=== PATIENT | male | born 1995 | race Caucasian/White ===

== ENCOUNTER 2023-05-08 04:21 | Outpatient (CLI) | payer OTHER | END 2023-05-08 04:22 | disposition critical access hospital (66) | LOC: EMS 04:21 | DX: R55 Syncope and collapse (principal); R00.1 Bradycardia, unspecified | CPT/HCPCS: A0425; A0427 ==

== ENCOUNTER 2023-05-08 04:35 | Emergency (ER) | payer OTHER ==
[2023-05-08] MEDS: SODIUM CHLORIDE 0.9% 1,000 ML IV STA (04:50)
[2023-05-08 05:34] LABS: BASOPHILS % (AUTO) 0.6 %; EOSINOPHILS # (AUTO) 0.1 10^3/uL (0.0-0.7); EOSINOPHILS % (AUTO) 0.8 %; HCT - HEMATOCRIT 44.5 % (42.0-52.0); MEAN CORPUSCULAR HEMOGLOBIN 29.1 pg (27.0-31.0); MEAN CORPUSCULAR HGB CONC 33.7 g/dL (32.0-36.0); MEAN CORPUSCULAR VOLUME 86.2 fL (80.0-94.0); MEAN PLATELET VOLUME 9.2 fL (7.4-11.4); MONOCYTES # (AUTO) 0.5 10^3/uL (0.0-1.0); MONOCYTES % (AUTO) 7.1 %; NEUTROPHILS # (AUTO) 3.5 10^3/uL (1.5-6.6); NEUTROPHILS % (AUTO) 49.2 %; PLT - PLATELET COUNT 219 10^3/uL (130-450); RED BLOOD COUNT 5.16 10^6/uL (4.70-6.10); RED CELL DISTRIBUTION WIDTH 11.4 % (12.0-15.0); WHITE BLOOD COUNT 7.2 x10^3/uL (4.8-10.8)
[2023-05-08 05:53] LABS: ALBUMIN 4.3 g/dL (3.2-5.5); BILIRUBIN,TOTAL 0.9 mg/dL (0.2-1.0); CALCIUM 9.3 mg/dL (8.5-10.3); CREATININE 0.9 mg/dL (0.6-1.3); POTASSIUM 3.6 mmol/L (3.5-4.5); TOTAL PROTEIN 6.5 g/dL (6.4-8.9)
--- NOTE | 2023-05-08 06:20 | ED Physician Documentation ---
History of Present Illness - Stated complaint Stated Complaint: SYNCOPE - Chief complaint Chief Complaint: Neuro - History obtained from History obtained from: Patient, EMS - Additonal information Additional information: The pt is brought to the ED by EMS for CC of syncopal episode. He had gotten up to go to the bathroom in the automotive tire tester, when he began to feel a little dizzy. The next thing he knew, he was waking up on the floor. His states he was out for about 30 seconds. She had heard him hit the door and fall, but he was against the door, so she couldn't open it to get to him. When the pt began to wake up, she was able to get in and help him get out, but she states the pt was "out of it" for about 8 minutes. BY the time the medics came, he was nearly back to his normal self, awake and talking. states that when she heard the pt fall, it was just silent after that, with no sound of the pt shaking. Pt does have a h/o fainting every time he gets his blood drawn. He states he has not fainted under other circumstances before. He states he did not have any CP, SOB, or palpitations before or since the episode. He is feeling fine now, other than being a little tired. PD PAST MEDICAL HISTORY - Past Medical History Past Medical History: No - Past Surgical History Past Surgical History: Yes General: Other HEENT: Other - Present Medications Home Medications: Ambulatory Orders Medication Instructions Recorded Confirmed No Known Home Medications 05/08/23 05/08/23 - Allergies Allergies/Adverse Reactions: Allergies Allergy/AdvReac Type Severity Reaction Status Date / Time cefprozil [From Cefzil] Allergy Rash Verified 05/08/23 05:11 - Social History Does the pt smoke?: No Smoking Status: Never smoker Does the pt drink ETOH?: Yes ETOH Use: Beer Does the pt have substance abuse?: No - Immunizations Immunizations are current?: Yes - POLST Patient has POLST: No PD ED PE NORMAL - Vitals Vital signs reviewed: Yes - General General: Alert and oriented X 3, No acute distress, Well developed/nourished - HEENT HEENT: Atraumatic, PERRL, EOMI, Moist mucous membranes - Neck Neck: Supple, no meningeal sign - Cardiac Cardiac: RRR, No murmur - Respiratory Respiratory: No respiratory distress, Clear bilaterally - Abdomen Abdomen: Soft, Non tender, Non distended - Derm Derm: Normal color, Warm and dry, No rash - Extremities Extremities: No deformity, No edema, No calf tenderness / cord - Neuro Neuro: Alert and oriented X 3, Other (grossly intact) - Psych Psych: Normal mood, Normal affect Results - Vitals Vitals: Oxygen O2 Source Room air - EKG (time done) 0448 EKG releavant findings:: EKG personally interpreted by author of this note. Relevant findings are: Rate: Rate (enter#) (52) Rhythm: NSR [place]: Normal Intervals: Normal VT QRS: Normal Ischemia: ST elevation c/w repol Compare to prior EKG: Old EKG unavailable Computer interpretation: Disagree with computer (The pt appears to have J-point elevation. No other findings to suggest pericarditis.) - Labs Labs: Laboratory Tests 05/08/23 05/08/23 04:53 04:53 WBC 7.2 RBC 5.16 Hgb 15.0 Hct 44.5 MCV 86.2 MCH 29.1 MCHC 33.7 RDW 11.4 L Plt Count 219 MPV 9.2 Neut # (Auto) 3.5 Lymph # (Auto) 3.0 Banner # (Auto) 0.5 Eos # (Auto) 0.1 Baso # (Auto) 0.0 Absolute Nucleated RBC 0.00 Nucleated RBC % 0.0 Sodium 136 Potassium 3.6 Chloride 102 Carbon Dioxide 25 Anion Gap 9.0 BUN 23 H Creatinine 0.9 Estimated GFR (MDRD) 101 Glucose 123 H Calcium 9.3 Total Bilirubin 0.9 AST 13 ALT 12 Alkaline Phosphatase 62 Total Protein 6.5 Albumin 4.3 Globulin 2.2 Albumin/Globulin Ratio 2.0 Lipase 29 PD Medical Decision Making - ED course Complexity details: reviewed results, re-evaluated patient, considered differential, d/w patient, d/w family ED course: The pt's vital signs were normal, and he was feeling well. His labs were unremarkable, as was EKG. His exam was atraumatic, and I did not feel that head CT was indicated at this time. The pt was stable for d/c. I am not entirely sure what caused his syncopal episode today. He has been treated with IV fluids, and I have advised him to follow up with his PCP to discuss event monitoring. Departure - Departure Disposition: 01 Home, Self Care Clinical Impression: Syncope Qualifiers: Syncope type: unspecified Qualified Code(s): R55 - Syncope and collapse Condition: Stable Instructions: ED Syncope Vasovagal Comments: Your labs look great as does your EKG. It is unclear exactly what caused you to faint today although given that you have a history of vasovagal fainting, this is most likely to be the same process, just triggered by something different than usual. We have given you a liter of IV fluid and you should take it easy today. If you have further episodes like this that are different than your usual triggers, especially if they become more frequent, you will need to talk to your doctor about having an event monitoring and possibly cardiology referral. At this point in time, no emergent condition has been identified. Please make the next available appointment to follow-up with your primary doctor. Forms: PCP List Discharge Date/Time: 05/08/23 06:39
[2023-05-08 06:22] VITALS: BP 115/79; O2SAT 98
== END 2023-05-08 06:39 | disposition home or self-care (01) ==
LOC: ED 04:35
DX: R55 Syncope and collapse (principal)
CPT/HCPCS: 36415; 80053; 83690; 85025; 93005; 99283; 99284